=== PATIENT | male | born 2005 | race African-American/Black ===

== ENCOUNTER 2025-01-23 21:04 | Emergency (ER) | payer OTHER ==
[~2025-01-23] VITALS: Ht 170.2 cm; Wt 68.0 kg
[2025-01-23 21:15] VITALS: BP 136/82; PULSE 82; RESP 16; TEMP 37; O2SAT 100
[2025-01-23] MEDS ORDERED: MUPI1OIN4 TP (21:43)
[2025-01-23] MEDS: BACITRACIN ZINC OINT UDPKT TOP ONE (22:01)
== END 2025-01-23 22:02 | disposition home or self-care (01) ==
LOC: ER 21:04
DX: S81.851A Open bite, right lower leg, initial encounter (principal); W54.0XXA Bitten by dog, initial encounter; Y93.89 Activity, other specified; Y92.89 Other specified places as the place of occurrence of the external cause; Y99.8 Other external cause status
CPT/HCPCS: 99283